=== PATIENT | male | born 2000 | race American Indian/Alaskan Native ===

== ENCOUNTER 2019-09-06 00:43 | Emergency (ER) | payer BC ==
[2019-09-06] MEDS ORDERED: predniSONE 20 MG Tab PO ONE (00:44)
--- NOTE | 2019-09-06 01:02 | EDM.PDOC ---
ED HPI GENERAL MEDICAL PROBLEM - General Chief Complaint: Bite:Animal, Insect Stated Complaint: SPIDER BITE Time Seen by Provider: 09/06/19 00:50 Source of Information: Reports: Patient History Limitations: Reports: No Limitations - History of Present Illness INITIAL COMMENTS - FREE TEXT/NARRATIVE: Patient woke up with spider bite on his right leg and is swollen and red. - Related Data Allergies Allergy/AdvReac Type Severity Reaction Status Date / Time No Known Allergies Allergy Verified 09/06/19 00:54 Home Meds: Home Meds NK [No Known Home Meds] 09/06/19 [History] ED ROS GENERAL - Review of Systems Review Of Systems: See Below Constitutional: Reports: No Symptoms HEENT: Reports: No Symptoms Respiratory: Reports: No Symptoms Cardiovascular: Reports: No Symptoms Endocrine: Reports: No Symptoms GI/Abdominal: Reports: No Symptoms : Reports: No Symptoms Musculoskeletal: Reports: No Symptoms Skin: Reports: Change in Color Neurological: Reports: No Symptoms ED EXAM, ANIMAL BITE - Physical Exam Exam: See Below Exam Limited By: No Limitations General Appearance: Alert, No Apparent Distress Ears: Normal External Exam, Normal Canal Nose: Normal Inspection, Normal Mucosa Throat/Mouth: Normal Inspection, Normal Lips Head: Atraumatic, Normocephalic Neck: Normal Inspection, Supple Respiratory/Chest: No Respiratory Distress, Lungs Clear, Normal Breath Sounds Cardiovascular: Normal Peripheral Pulses, Regular Rate, Rhythm, No Edema Back Exam: Normal Inspection Extremities: Normal Inspection Neurological: Alert, Oriented Skin Exam: Other (wheal,localized reaction right leg) Course - Vital Signs Text/Narrative:: reassurance Last Recorded V/S: Last Vital Signs Temp 36.6 C 09/06/19 00:45 Pulse 84 09/06/19 00:45 Resp 16 09/06/19 00:45 BP 158/81 H 09/06/19 00:45 Pulse Ox 100 09/06/19 00:45 Departure - Departure Time of Disposition: 01:15 Disposition: Home, Self-Care 01 Condition: Good Clinical Impression: Insect bite - Discharge Information Instructions: Spider Bite, [id number] Additional Instructions: please read discharge instructions on insect bite apply ice take benadryl 25 mg every 6 hours as needed for itching prednisone 20 mg daily for 5 days follow up as needed Sepsis Event Note (ED) - Evaluation Sepsis Screening Result: No Definite Risk - Focused Exam Vital Signs: Vital Signs Temp Pulse Resp BP Pulse Ox 09/06/19 00:45 36.6 C 84 16 158/81 H 100
== END 2019-09-06 01:13 | disposition home or self-care (01) ==
LOC: FB.ED 00:43
DX: S80.861A Insect bite (nonvenomous), right lower leg, initial encounter (principal); W57.XXXA Bitten or stung by nonvenomous insect and other nonvenomous arthropods, initial encounter
CPT/HCPCS: 99282; J7512

== ENCOUNTER 2019-09-09 15:01 | Emergency (ER) | payer BC ==
[2019-09-09] MEDS ORDERED: Acetaminophen 500 MG Tab PO ONE (15:18)
[2019-09-09] MEDS ORDERED: Ketorolac 60 MG/2 ML SDV IM ONE (15:18)
[2019-09-09] MEDS ORDERED: cefTRIAXone 1 GM Vial IM ONE (15:19)
--- NOTE | 2019-09-09 15:26 | EDM.PDOC ---
ED HPI GENERAL MEDICAL PROBLEM - General Chief Complaint: Skin Complaint Stated Complaint: RT LEG PAIN Time Seen by Provider: 09/09/19 15:10 Source of Information: Reports: Patient, Old Records, RN History Limitations: Reports: No Limitations - History of Present Illness INITIAL COMMENTS - FREE TEXT/NARRATIVE: 19 yo NA male here with redness/swelling/pain to the back of his R calf that is progressing. He denies fever or chills. Was seen here 3 days ago and given prednisone 20 mg qd x 5 d and he has gotten worse since then. Claims pain is a 10/10, but has not taken anything for the pain. Has not followed up or made an appt to follow up in the clinic. Thought the problem began as a "spider bite". 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 Denies: Bruising, Pruritis, Rash Neurological: Reports: No Symptoms ED EXAM, SKIN/RASH Exam: See Below Exam Limited By: No Limitations General Appearance: Alert, WD/WN, No Apparent Distress Extremities: No Pedal Edema, Leg Pain (R calf), Increased Warmth (R calf), Redness (R calf). No: Normal Inspection, Pedal Edema Neurological: Alert, Oriented, CN II-XII Intact, Normal Cognition, No Motor/ Sensory Deficits Skin: Warm, Dry, Intact, No Rash, Erythema (R calf), Increased Warmth (R calf), Wound/Incision (small bite/puncture to center of the R calf) Location, Skin: Lower Extremity, Right Characteristics: Erythematous Associated features: Warmth, Tenderness. No: Lymphangitis Course - Vital Signs Last Recorded V/S: Last Vital Signs Temp 36.6 C 09/09/19 15:10 Pulse 97 09/09/19 15:10 Resp 16 09/09/19 15:10 BP 152/73 H 09/09/19 15:10 Pulse Ox 100 09/09/19 15:10 - Orders/Labs/Meds Orders: Active Orders 24 hr Category Date Time Status GLUCOSE POC LAB TO COLLECT [POC] Stat Lab 09/09/19 15:18 Ordered Labs: Laboratory Tests 09/09/19 Range/Units 15:30 WBC 12.2 H (4.5-12.0) X10-3/uL RBC 4.57 (4.30-5.75) x10(6)uL Hgb 13.7 (13.5-17.8) g/dL Hct 41.6 (30.0-51.3) % MCV 91.2 (80-96) fL MCH 30.0 (27.7-33.6) pg MCHC 32.8 (32.2-35.4) g/dL RDW 13.7 (11.5-15.5) % Plt Count 203 (125-369) X10(3)uL Meds: Medications Discontinued Medications Generic Name Dose Route Start Last Admin Trade Name Freq PRN Reason Stop Dose Admin Acetaminophen 1,000 mg 09/09/19 15:18 09/09/19 15:25 Tylenol Extra Strength PO 09/09/19 15:19 1,000 mg ONETIME ONE Administration Ceftriaxone Sodium 1 gm 09/09/19 15:19 09/09/19 15:26 Rocephin IM 09/09/19 15:20 1 gm ONETIME ONE Administration Doxycycline Hyclate 200 mg 09/09/19 15:42 Vibra-Tabs PO 09/09/19 15:43 ONETIME ONE Ketorolac Tromethamine 60 mg 09/09/19 15:18 09/09/19 15:26 Toradol IM 09/09/19 15:19 60 mg ONETIME ONE Administration Departure - Departure Time of Disposition: 16:00 Disposition: Home, Self-Care 01 Condition: Fair Clinical Impression: Cellulitis Qualifiers: Site of cellulitis: extremity Site of cellulitis of extremity: lower extremity Laterality: right Qualified Code(s): L03.115 - Cellulitis of right lower limb - Discharge Information *PRESCRIPTION DRUG MONITORING PROGRAM REVIEWED*: No *COPY OF PRESCRIPTION DRUG MONITORING REPORT IN PATIENT ENMANUEL: No Instructions: Cellulitis, Adult, [id number] Referrals: PCP,None [Primary Care Provider] - Forms: ED Department Discharge Additional Instructions: Crutch walking. Elevate your right leg above your heart to reduce swelling. Take ibuprofen 600 mg every 6 hrs with food and/or acetaminophen 1000 mg every 6 hrs for pain relief. Take doxycycline 100 mg every 12 hrs, make sure not to eat anything that contains calcium 2 hrs before or after this med. Next dose at bedtime tonight. Take cephalexin 500 mg every 6 hrs, next dose mid afternoon tomorrow. Follow up in a clinic of your choice in the next couple of days. Sepsis Event Note (ED) - Focused Exam Vital Signs: Vital Signs Temp Pulse Resp BP Pulse Ox 09/09/19 15:10 36.6 C 97 16 152/73 H 100 - My Orders Last 24 Hours: My Active Orders 09/09/19 15:18 GLUCOSE POC LAB TO COLLECT [POC] Stat - Assessment/Plan Last 24 Hours: My Active Orders 09/09/19 15:18 GLUCOSE POC LAB TO COLLECT [POC] Stat
[2019-09-09] MEDS ORDERED: Doxycycline 100 MG Tab PO ONE ×2 (15:42→16:02)
== END 2019-09-09 16:12 | disposition home or self-care (01) ==
LOC: FB.ED 15:01
DX: L03.115 Cellulitis of right lower limb (principal)
CPT/HCPCS: 36415; 82962; 85027; 96372; 99283; A9270; J0696; J1885

== ENCOUNTER 2019-09-11 15:58 | Emergency (ER) | payer BC ==
[2019-09-11] MEDS ORDERED: Sodium Chloride 0.9% 10 ML Syringe FLUSH PRN (16:25)
[2019-09-11] MEDS ORDERED: cefTRIAXone 2 GM Vial IVPUSH ONE (16:26)
[2019-09-11] MEDS ORDERED: Acetaminophen/HYDROcodone 325-5 MG Tab PO STA (16:42)
--- NOTE | 2019-09-11 16:57 | EDM.PDOC ---
ED HPI GENERAL MEDICAL PROBLEM - General Stated Complaint: CELLULITIS Time Seen by Provider: 09/11/19 16:00 Source of Information: Reports: Patient History Limitations: Reports: No Limitations - History of Present Illness INITIAL COMMENTS - FREE TEXT/NARRATIVE: Patient presented to the ED because of a RLE pain,redness,swelling. He was seen on 09/05 which started as a spider bite and later developed cellulitis. He was seen on 09/08 again and was given a prescription for Keflex and doxycycline. There is no associated fever,chills. R posterior calf Pain Score (Numeric/FACES): 8 - Related Data Allergies Allergy/AdvReac Type Severity Reaction Status Date / Time No Known Allergies Allergy Verified 09/11/19 16:09 Home Meds: Home Meds Doxycycline [Vibra-Tabs] 100 mg PO Q12HR #18 tab 09/09/19 [Rx] cephALEXin [Cephalexin] 500 mg PO QID #36 tablet 09/09/19 [Rx] Acetaminophen/HYDROcodone [[place] 325-5 MG] 1 - 2 tab PO Q4H PRN #10 tab [Rx] Past Medical History - Past Health History Medical/Surgical History: Denies Medical/Surgical History Social & Family History - Family History Family Medical History: Noncontributory - Caffeine Use Caffeine Use: Reports: Energy Drinks ED ROS GENERAL - Review of Systems Review Of Systems: See Below Constitutional: Reports: No Symptoms HEENT: Reports: No Symptoms Respiratory: Reports: No Symptoms Cardiovascular: Reports: No Symptoms Endocrine: Reports: No Symptoms GI/Abdominal: Reports: No Symptoms : Reports: No Symptoms Musculoskeletal: Reports: No Symptoms Skin: Reports: Erythema, Wound, Change in Color, Other (RLE) Neurological: Reports: No Symptoms ED EXAM, SKIN/RASH Exam: See Below Exam Limited By: No Limitations General Appearance: Alert, No Apparent Distress Ears: Normal External Exam, Normal Canal Nose: Normal Inspection, Normal Mucosa Throat/Mouth: Normal Inspection, Normal Lips Head: Atraumatic, Normocephalic Neck: Normal Inspection, Supple, Non-Tender Respiratory/Chest: No Respiratory Distress, Lungs Clear, Normal Breath Sounds Cardiovascular: Normal Peripheral Pulses, Regular Rate, Rhythm, No Edema GI/Abdominal: Normal Bowel Sounds, Soft, Non-Tender Back Exam: Normal Inspection, Full Range of Motion Extremities: Normal Inspection, Normal Range of Motion, Non-Tender, Leg Pain Skin: Warm, Erythema, Increased Warmth Course - Vital Signs Text/Narrative:: Labs reviewed and discussed with patient Rocephin 2 gm IV [place] 5/325, 2 po x1 Last Recorded V/S: Last Vital Signs Temp 36.8 C 09/11/19 15:58 Pulse 96 09/11/19 15:58 Resp 20 09/11/19 15:58 BP 149/78 H 09/11/19 15:58 Pulse Ox 98 09/11/19 15:58 - Orders/Labs/Meds Orders: Active Orders 24 hr Category Date Time Status Sodium Chloride 0.9% [Saline Flush] Med 09/11/19 16:25 Active 10 ml FLUSH ASDIRECTED PRN Saline Lock Insert [OM.PC] Routine Oth 09/11/19 16:25 Ordered Medication Orders Sodium Chloride (Saline Flush) 10 ml FLUSH ASDIRECTED PRN PRN Reason: Keep Vein Open Last Admin: 09/11/19 16:54 Dose: 10 ml Labs: Laboratory Tests 09/11/19 09/11/19 09/11/19 Range/Units 16:15 16:15 16:15 WBC 12.6 H (4.5-12.0) X10-3/uL RBC 4.56 (4.30-5.75) x10(6)uL Hgb 14.0 (13.5-17.8) g/dL Hct 42.1 (30.0-51.3) % MCV 92.2 (80-96) fL MCH 30.6 (27.7-33.6) pg MCHC 33.2 (32.2-35.4) g/dL RDW 13.9 (11.5-15.5) % Plt Count 216 (125-369) X10(3)uL MPV 9.8 (7.4-10.4) fL Neut % (Auto) 81.9 (46-82) % Lymph % (Auto) 9.3 L (13-37) % [place] % (Auto) 5.7 (4-12) % Eos % (Auto) 1 (1.0-5.0) % Baso % (Auto) 2 (0-2) % Neut # (Auto) 10.3 H (1.6-8.3) # Lymph # (Auto) 1.2 (0.6-5.0) # Scurry # (Auto) 0.7 (0.0-1.3) # Eos # (Auto) 0.1 (0.0-0.8) # Baso # (Auto) 0.3 H (0.0-0.2) # Sodium 140 (135-145) mmol/L Potassium 3.6 (3.5-5.3) mmol/L Chloride 101 (100-110) mmol/L Carbon Dioxide 31 (21-32) mmol/L BUN 10 (7-18) mg/dL Creatinine 1.0 (0.70-1.30) mg/dL Est Cr Clr Drug Dosing TNP Estimated GFR (MDRD) > 60 (>60) BUN/Creatinine Ratio 10.0 (9-20) Glucose 125 H (80-116) mg/dL Lactic Acid 1.5 (0.4-2.0) mmol/L Calcium 9.1 (8.6-10.2) mg/dL Meds: Medications Generic Name Dose Route Start Last Admin Trade Name Freq PRN Reason Stop Dose Admin Sodium Chloride 10 ml 09/11/19 16:25 09/11/19 16:54 Saline Flush FLUSH 10 ml ASDIRECTED PRN Administration Keep Vein Open Discontinued Medications Generic Name Dose Route Start Last Admin Trade Name Freq PRN Reason Stop Dose Admin Hydrocodone Bitart/Acetaminophen 2 tab 09/11/19 16:42 09/11/19 16:50 [place] 325-5 Mg PO 09/11/19 16:43 2 tab NOW STA Administration Ceftriaxone Sodium 2 gm 09/11/19 16:26 09/11/19 16:55 Rocephin IVPUSH 09/11/19 16:27 2 gm ONETIME ONE Administration Departure - Departure Time of Disposition: 18:00 Disposition: Home, Self-Care 01 Condition: Good Clinical Impression: Cellulitis - Discharge Information Prescriptions: Acetaminophen/HYDROcodone [[place] 325-5 MG] 1 - 2 tab PO Q4H PRN #10 tab PRN Reason: Pain Instructions: Cellulitis, Adult Referrals: PCP,None [Primary Care Provider] - Forms: ED Department Discharge Additional Instructions: Please read discharge instructions on cellulitis Quit taking Cephalexin/Keflex, start taking it again on 09/16/19 until gone Continue Doxycycline 100 mg twice daily until gone [place]/hydrocodone 5/325, 1-2 tablets every 4-6 hours as needed for pain Return to the ED for intravenous antibiotic treatment starting tomorrow 09/11- Follow up with your doctor on this coming Tuesday or Tuesday Sepsis Event Note (ED) - Evaluation Sepsis Screening Result: No Definite Risk - Focused Exam Vital Signs: Vital Signs Temp Pulse Resp BP Pulse Ox 09/11/19 15:58 36.8 C 96 20 149/78 H 98 - My Orders Last 24 Hours: My Active Orders 09/11/19 16:25 Sodium Chloride 0.9% [Saline Flush] 10 ml FLUSH ASDIRECTED PRN Saline Lock Insert [OM.PC] Routine - Assessment/Plan Last 24 Hours: My Active Orders 09/11/19 16:25 Sodium Chloride 0.9% [Saline Flush] 10 ml FLUSH ASDIRECTED PRN Saline Lock Insert [OM.PC] Routine
== END 2019-09-11 17:40 | disposition home or self-care (01) ==
LOC: FB.ED 15:58
DX: L03.115 Cellulitis of right lower limb (principal)
CPT/HCPCS: 36415; 80048; 83605; 85025; 96374; 99283; A9270; J0696